=== PATIENT | female | born 2000 | race Two or more races ===

== ENCOUNTER 2023-09-30 15:29 | Outpatient (CLI) | payer OTHER | END 2023-09-30 15:32 | disposition home or self-care (01) | LOC: PRENATAL 15:29 | PROVIDERS: ATTEND Obstetrics & Gynecology Maternal & Fetal Medicine | DX: O35.3XX0 Maternal care for (suspected) damage to fetus from viral disease in mother, not applicable or unspecified (principal); O44.00 Complete placenta previa NOS or without hemorrhage, unspecified trimester; Z3A.20 20 weeks gestation of pregnancy ==

== ENCOUNTER 2023-11-28 08:40 | Outpatient (CLI) | payer OTHER | END 2023-11-28 08:41 | disposition home or self-care (01) | LOC: PRENATAL 08:40 | PROVIDERS: ATTEND Obstetrics & Gynecology Maternal & Fetal Medicine | DX: O26.849 Uterine size-date discrepancy, unspecified trimester (principal); O10.019 Pre-existing essential hypertension complicating pregnancy, unspecified trimester; O99.280 Endocrine, nutritional and metabolic diseases complicating pregnancy, unspecified trimester; Z3A.28 28 weeks gestation of pregnancy ==

== ENCOUNTER → 2023-12-26 08:42 | Outpatient (CLI) | payer OTHER | END | disposition home or self-care (01) | LOC: PRENATAL 08:42 | PROVIDERS: ATTEND Obstetrics & Gynecology Maternal & Fetal Medicine | DX: O26.849 Uterine size-date discrepancy, unspecified trimester (principal); O36.8199 Decreased fetal movements, unspecified trimester, other fetus; O10.019 Pre-existing essential hypertension complicating pregnancy, unspecified trimester; O99.280 Endocrine, nutritional and metabolic diseases complicating pregnancy, unspecified trimester; Z3A.32 32 weeks gestation of pregnancy ==

== ENCOUNTER 2024-01-23 08:39 | Outpatient (CLI) | payer OTHER | END 2024-01-23 08:40 | disposition home or self-care (01) | LOC: PRENATAL 08:39 | PROVIDERS: ATTEND Obstetrics & Gynecology Maternal & Fetal Medicine | DX: O26.849 Uterine size-date discrepancy, unspecified trimester (principal); O36.8199 Decreased fetal movements, unspecified trimester, other fetus; O99.280 Endocrine, nutritional and metabolic diseases complicating pregnancy, unspecified trimester; Z3A.34 34 weeks gestation of pregnancy ==